=== PATIENT | female | born 1980 | race Caucasian/White ===

== ENCOUNTER 2016-08-25 10:40 | Emergency (ER) | payer OTHER ==
[~2016-08-25] VITALS: Ht 170.2 cm; Wt 104.3 kg
[~2016-08-25 10:40] MED LIST changes: -DICL50TA4; -LEVO75TA6
[2016-08-25] MEDS ORDERED: DICL50TA4 (10:52)
[2016-08-25] MEDS ORDERED: LEVO75TA6 (10:54)
[2016-08-25] MEDS ORDERED: LIDOCAINE 2% VISCOUS 15 ML UDC PO ONE (11:00)
[2016-08-25] MEDS ORDERED: ASPIRIN 81 MG CHEW (CHILDREN'S ASA) PO ONE (11:00)
[2016-08-25] MEDS ORDERED: ANTACID SUSP 30 ML UDC (MYLANTA) PO ONE (11:00)
--- NOTE | 2016-08-25 11:02 | ED Chest Pain ---
General Chief Complaint: Cardiac/General Problems Stated Complaint: ELEV BP UPPER ABD/BACK PAIN Nursing Triage Note: Patient reports was working and began to sweat, patient reports has a pain in the middle of her back and chest. patient had her BP taken and it was elevated. patient reports she has been weak and lightheaded Nursing Sepsis Screen: No Definite Risk Source: patient Exam Limitations: no limitations History of Present Illness Time seen by provider: 10:49 Initial Comments Here with report of central chest pain that radiates to her back. This is associated with nausea and sweating. Had an episode a few days ago that lasted 15 or 20 minutes and then went away. Today's episode started about 45 minutes to an hour ago and is associated with symptoms listed. Also noted to be intermittently hypertensive with blood pressure in her work area of 200/100. No family history of heart disease. Patient has history of thyroid problems and is on thyroid replacement. She is also on control. Timing/Duration: 1 hour Severity/Quality: moderate, aching, pressure Location: central Radiation: back Activities at Onset: none Prior CP/Workup: no prior chest pain ASA po LABORATORY EQUIPMENT CLEANER: No NTG SL LABORATORY EQUIPMENT CLEANER: No Associated Symptoms: abdominal pain, back pain, No diaphoresis, No edema, No fatigue, No fever/chills, nausea/vomiting, No shortness of breath, No weakness Allergies and Home Medications Allergies Coded Allergies: No Known Drug Allergies (Verified , 10/12/15) Home Medications Citalopram Hydrobromide 20 Mg Tablet, 20 MG PO DAILY, (Reported) Diclofenac Potassium 50 Mg Tablet, #90 (Reported) Levothyroxine Sodium 75 Mcg Tablet, #30 (Reported) [Sprintec 28] , 1 TAB PO DAILY Prescribed by: PERLA OSHEA on 07/14/14 0904 Review of Systems Constitutional: see HPI, No chills, diaphoresis, No fever EENTM: No Symptoms Reported Respiratory: No Symptoms Reported Cardiovascular: See HPI, Chest Pain, Palpitations Gastrointestinal: No Symptoms Reported Genitourinary: No Symptoms Reported, Denies Pain, Denies Urgency Musculoskeletal: see HPI, back pain Skin: no symptoms reported Psychiatric/Neurological: See HPI, Anxiety, Denies Headache, Denies Weakness Endocrine: No Symptoms Reported All Other Systems Reviewed Negative Unless Noted: Yes Past Lziihzm-Jmldke-Rmaykd Hx Patient Social History Alcohol Use: Denies Use Recreational Drug Use: No Smoking Status: Never a Smoker Recent Foreign Travel: No Contact w/Someone Who Travel: No Recent Infectious Disease Expo: No Recent Hopitalizations: No Surgeries HX Surgeries: Yes (R THYROIDECTOMY) Respiratory Hx Respiratory Disorders: No Cardiovascular Hx Cardiac Disorders: No Neurological Hx Neurological Disorders: No Reproductive System Hx Reproductive Disorders: No Sexually Transmitted Disease: No Genitourinary Hx Genitourinary Disorders: No Gastrointestinal Hx Gastrointestinal Disorders: No Musculoskeletal Hx Musculoskeletal Disorders: No Endocrine Hx Endocrine Disorders: Yes HEENT HX ENT Disorders: No Psychosocial Hx Psychiatric Problems: Yes Blood Transfusions Hx Blood Disorders: No Reviewed Nursing Assessment Reviewed/Agree w Nursing PMH: Yes Family Medical History Significant Family History: No Pertinent Family Hx Physical Exam Vital Signs Vital Sign - Last 12Hours 08/25/16 10:49 Temp 98.2 Pulse 87 Resp 17 B/P (MAP) 147/104 Pulse Ox 98 O2 Delivery Room Air Capillary Refill : Less Than 3 Seconds General Appearance: No Apparent Distress, WD/WN HEENT: PERRL/EOMI, Pharynx Normal Neck: Non Tender, Supple Respiratory: Lungs Clear, Normal Breath Sounds Cardiovascular: Regular Rate, Rhythm, No Murmur Gastrointestinal: Non Tender, Soft Extremity: Normal Range of Motion, Non Tender Neurologic/Psychiatric: Alert, Oriented x3 Skin: Normal Color, Warm/Dry Progress/Results/Core Measures Results/Orders Lab Results Laboratory Tests Test 08/25/16 11:06 08/25/16 13:15 Range/Units White Blood Count 8.0 4.3-11.0 10^3/uL Red Blood Count 4.20 L 4.35-5.85 10^6/uL Hemoglobin 12.8 11.5-16.0 G/DL Hematocrit 39 35-52 % Mean Corpuscular Volume 92 80-99 FL Mean Corpuscular Hemoglobin 31 25-34 PG Mean Corpuscular Hemoglobin Concent 33 32-36 G/DL Red Cell Distribution Width 13.7 10.0-14.5 % Platelet Count 259 130-400 10^3/uL Mean Platelet Volume 9.5 7.4-10.4 FL Neutrophils (%) (Auto) 69 42-75 % Lymphocytes (%) (Auto) 20 12-44 % Monocytes (%) (Auto) 8 0-12 % Eosinophils (%) (Auto) 3 0-10 % Basophils (%) (Auto) 1 0-10 % Neutrophils # (Auto) 5.5 1.8-7.8 X 10^3 Lymphocytes # (Auto) 1.6 1.0-4.0 X 10^3 Monocytes # (Auto) 0.7 0.0-1.0 X 10^3 Eosinophils # (Auto) 0.2 0.0-0.3 10^3/uL Basophils # (Auto) 0.1 0.0-0.1 10^3/uL Prothrombin Time 12.5 12.2-14.7 SEC INR Comment 1.0 0.8-1.4 Activated Partial Thromboplast Time 28 24-35 SEC D-Dimer 0.27 0.00-0.49 UG/ML Sodium Level 135 135-145 MMOL/L Potassium Level 4.0 3.6-5.0 MMOL/L Chloride Level 104 98-107 MMOL/L Carbon Dioxide Level 21 21-32 MMOL/L Anion Gap 10 5-14 MMOL/L Blood Urea Nitrogen 19 H 7-18 MG/DL Creatinine 0.68 0.60-1.30 MG/DL Estimat Glomerular Filtration Rate > 60 BUN/Creatinine Ratio 28 Glucose Level 99 70-105 MG/DL Calcium Level 9.4 8.5-10.1 MG/DL Magnesium Level 1.6 L 1.8-2.4 MG/DL Total Bilirubin 0.6 0.1-1.0 MG/DL Aspartate Amino Transf (AST/SGOT) 21 5-34 U/L Alanine Aminotransferase (ALT/SGPT) 18 0-55 U/L Alkaline Phosphatase 58 40-136 U/L Myoglobin 19.6 10.0-92.0 NG/ML Troponin I < 0.30 <0.30 NG/ML Total Protein 7.0 6.4-8.2 G/DL Albumin 4.0 3.2-4.5 G/DL Thyroid Stimulating Hormone (TSH) 2.62 0.35-4.94 UIU/ML My Orders Orders - ITA VIDES MD Cbc With Automated Diff (08/25/16 10:55) Magnesium (08/25/16 10:55) Chest 1 View, Ap/Pa Only (08/25/16 10:55) Ekg Tracing (08/25/16 10:55) Cardiac Profile 1 (08/25/16 10:55) Comprehensive Metabolic Panel (08/25/16 10:55) Myoglobin Serum (08/25/16 10:55) Protime With Inr (08/25/16 10:55) Partial Thromboplastin Time (08/25/16 10:55) O2 (08/25/16 10:55) Monitor-Rhythm Ecg Trace Only (08/25/16 10:55) Lipid Panel (08/26/16 06:00) Aspirin Chewable Tablet (Baby Aspirin Ch (08/25/16 11:00) Rx-Nitroglycerin Sl Tabs (Rx-Nitrostat S (08/25/16 11:00) Saline Lock/Iv-Start (08/25/16 10:55) Fibrin Degradation Products (08/25/16 10:55) Thyroid Stimulating Hormone (08/25/16 10:55) Lidocaine 2% Viscous 15 Ml (Xylocaine Vi (08/25/16 11:00) Antacid Suspension (Mylanta Suspension (08/25/16 11:00) Ketorolac Injection (Toradol Injection) (08/25/16 12:12) Famotidine Injection (Pepcid Injection) (08/25/16 12:12) Troponin I (08/25/16 13:18) Ekg Tracing (08/25/16 13:18) Myoglobin Serum (08/25/16 13:18) Hyoscyamine Sl Tablet (Levsin Sl Tablet) (08/25/16 13:45) Medications Given in ED Current Medications Medications Dose Ordered Sig/Tyler Route Start Time Stop Time Status Last Admin Dose Admin Al Hydrox/Mg Hydrox/Simethicone 30 ml ONCE ONCE PO 08/25/16 11:00 08/25/16 11:01 DC 08/25/16 11:16 30 ML Aspirin 324 mg ONCE ONCE PO 08/25/16 11:00 08/25/16 11:01 DC 08/25/16 11:16 324 MG Hyoscyamine Sulfate 0.125 mg ONCE ONCE SL 08/25/16 13:45 08/25/16 13:46 DC 08/25/16 13:45 0.125 MG Lidocaine HCl 15 ml ONCE ONCE PO 08/25/16 11:00 08/25/16 11:01 DC 08/25/16 11:17 15 ML Nitroglycerin 0.4 mg PRN PRN SL 08/25/16 11:00 08/25/16 11:27 0.4 MG Vital Signs/I&O Vital Sign - Last 12Hours 08/25/16 08/25/16 10:49 10:49 Temp 98.2 Pulse 87 Resp 17 B/P (MAP) 147/104 Pulse Ox 98 98 O2 Delivery Room Air Blood Pressure Mean: 118 Progress Note : Progress Note Seen and evaluated. IV, labs, EKG and chest x-ray ordered. ASA 324 mg by mouth. GI cocktail and nitroglycerin sublingual ordered. Chest pain-free after 2 nitroglycerin and the GI cocktail. She does have a little bit of back discomfort. We did give Toradol 30 mg IV for that. Monitor patient. 1230: Patient remains pain free. Repeat EKG and labs after 1 p.m. 1325: Repeat labs drawn and sent. Repeat EKG ordered. 1341: EKG still shows normal sinus rhythm. Labs pending. I did discuss the case with Dr. Katz. He will see patient in the office now for further workup and potentially stress echo. Patient is very agreeable with that plan. Discharged from ER to go to Dr. Katz 's office. Patient verbalize understanding instructions and agreement with plan. ECG Initial ECG Impression Date: August 25, 2016 Initial ECG Impression Time: 10:59 Initial ECG Rate: 73 Initial ECG Rhythm: Normal Sinus Initial ECG Intervals: Normal Initial ECG Impression: Normal Initial ECG Comparisson: Unchanged Comment Sinus rhythm with normal axis. No evidence of ST elevation. No previous available for comparison. Interpreted by me. EKG : EKG Time: 13:33 Rate: 72 Rhythm: Normal Sinus ECG Comparisson: Unchanged ECG Impression: Normal Comment Normal sinus rhythm with normal axis. No evidence of ST elevation HI. Unchanged from previous. Interpreted by me. Diagnostic Imaging Diagonstic Imaging: Xray Plain Films/CT/US/NM/MRI: chest Comments NAME: WILLIAM CROWELL MED REC#: [id number] PT STATUS: REG ER : 1980 PHYSICIAN: ITA VIDES MD ADMIT DATE: 08/25/16/ER Signed Date of Exam: 08/25/16 CHEST 1 VIEW, AP/PA ONLY EXAMINATION: Portable upright radiograph of the chest. INDICATION: Elevated blood pressure. Chest pain. FINDINGS: The lungs are clear. The heart size is normal. No effusion or pneumothorax. The mediastinum and norma appear unremarkable. IMPRESSION: Unremarkable exam. Dictated by: Dictated on workstation # [id number] Dict: 08/25/16 1121 Trans: 08/25/16 1144 Interpreted by: YARI GANDHI MD Electronically signed by: YARI GANDHI MD 08/25/16 1144 Departure Impression Impression: Primary Impression: Chest pain Qualified Codes: R07.9 - Chest pain, unspecified Disposition: HOME, SELF-CARE Condition: Stable Departure-Patient Inst. Decision time for Depature: 13:47 Referrals: SANTOS KATZ MD ,LOCAL PHYSICIAN (PCP) Primary Care Physician Patient Instructions: Chest Pain (DC) Add. Discharge Instructions: All discharge instructions reviewed with patient and/or family. Voiced understanding. Go directly to Dr. Katz's office for further evaluation. Return for worse pain , fever, vomiting, weakness, breathing problems or other concerns as needed. Copy Copies To 1: SANTOS KATZ MD, TIMOTHY D MD August 25, 2016 11:02
[2016-08-25 11:16] LABS: BASOPHILS # (AUTO) 0.1 10^3/uL (0.0-0.1); BASOPHILS % (AUTO) 1 % (0-10); EOSINOPHILS # (AUTO) 0.2 10^3/uL (0.0-0.3); EOSINOPHILS % (AUTO) 3 % (0-10); LYMPHOCYTES # (AUTO) 1.6 X 10^3 (1.0-4.0); LYMPHOCYTES % (AUTO) 20 % (12-44); MEAN CORPUSCULAR HEMOGLOBIN 31 PG (25-34); MEAN CORPUSCULAR HGB CONC 33 G/DL (32-36); MEAN CORPUSCULAR VOLUME 92 FL (80-99); MEAN PLATELET VOLUME 9.5 FL (7.4-10.4); MONOCYTES # (AUTO) 0.7 X 10^3 (0.0-1.0); MONOCYTES % (AUTO) 8 % (0-12); NEUTROPHILS # (AUTO) 5.5 X 10^3 (1.8-7.8); NEUTROPHILS % (AUTO) 69 % (42-75); PLATELET COUNT 259 10^3/uL (130-400); RED CELL DISTRIBUTION WIDTH 13.7 % (10.0-14.5)
[2016-08-25] MEDS: RX-NITROGLYCERIN 0.4 MG TAB BTL 25'S SL PRN ×2 (11:21→11:27)
--- NOTE | 2016-08-25 11:24 | Diagnostic Imaging Report ---
EXAMINATION: Portable upright radiograph of the chest. INDICATION: Elevated blood pressure. Chest pain. FINDINGS: The lungs are clear. The heart size is normal. No effusion or pneumothorax. The mediastinum and norma appear unremarkable. IMPRESSION: Unremarkable exam. Dictated by: Dictated on workstation # [id number]
[2016-08-25 11:25] LABS: PROTHROMBIN TIME PATIENT 12.5 SEC (12.2-14.7)
[2016-08-25 11:33] LABS: ALANINE AMINOTRANSFERASE 18 U/L (0-55); ANION GAP 10 MMOL/L (5-14); ASPARTATE AMINO TRANSFERASE 21 U/L (5-34); BILIRUBIN,TOTAL 0.6 MG/DL (0.1-1.0); BLOOD UREA NITROGEN 19 MG/DL (7-18); BUN/CREATININE RATIO 28; CALCIUM 9.4 MG/DL (8.5-10.1); CARBON DIOXIDE 21 MMOL/L (21-32); CHLORIDE 104 MMOL/L (98-107); CREATININE SERUM 0.68 MG/DL (0.60-1.30); GFR ESTIMATED > 60; GLUCOSE 99 MG/DL (70-105); MAGNESIUM 1.6 MG/DL (1.8-2.4); SODIUM 135 MMOL/L (135-145)
[2016-08-25 11:40] LABS: MYOGLOBIN SERUM 19.6 NG/ML (10.0-92.0)
[2016-08-25] MEDS ORDERED: FAMOTIDINE 20MG/2ML IV (PEPCID) IV STA (12:12)
[2016-08-25] MEDS ORDERED: KETOROLAC 30 MG/ML VIAL IVP STA (12:12)
[2016-08-25] MEDS ORDERED: HYOSCYAMINE 0.125 MG (LEVSIN) TAB SL ONE (13:45)
[2016-08-25 13:59] LABS: MYOGLOBIN SERUM 19.4 NG/ML (10.0-92.0); TROPONIN I < 0.30 NG/ML (<0.30)
[2016-08-25 14:01] VITALS: BP 115/70
== END 2016-08-25 14:00 | disposition home or self-care (01) ==
LOC: EDUNIT# 10:40 → ER 10:43
DX: R07.9 Chest pain, unspecified (principal); R11.0 Nausea; E07.9 Disorder of thyroid, unspecified; Z79.899 Other long term (current) drug therapy
CPT/HCPCS: 36415; 71010; 80053; 83735; 83874; 84443; 84484; 85025; 85379; 85610; 85730; 93041

== ENCOUNTER → 2016-08-25 | Outpatient (CLI) | payer OTHER ==
[~2016-08-25] MED LIST: BC PILL PO; CITA20TA12 PO; DICL50TA4; LEVO75TA6; LVT.05T PO; NRT25C; POLY17PO23 GT; PRX10T PO; SPRINTEC 28 PO; SUMA50TA2 PO; TRAM50TA2 PO; VNL75CCR PO
--- NOTE | 2016-08-25 18:18 | STRESS TEST ---
DATE OF SERVICE: 08/25/2016 EXERCISE STRESS ECHOCARDIOGRAM Baseline heart rate is 79, baseline blood pressure 143/75. Baseline EKG, sinus rhythm with no ischemic changes. SUMMARY: The patient started exercising with a baseline heart rate, blood pressure and EKG mentioned above. She was able to exercise for a total of 8 minutes on standard [place] protocol, achieving maximum heart rate of 178, which is 98% of maximum expected heart rate. With peak exercise level, EKG was showing no ischemic changes. No chest pain was reported. Blood pressure was 199/72. During recovery, heart rate and blood pressure returned to baseline. EKG returned to baseline. Echocardiographic images were acquired and reviewed in the parasternal long axis, parasternal short axis, apical four chamber and apical two chamber views. Review of the images showed normal left ventricular size with normal contractility with no ischemic changes. CONCLUSION: 1. Good exercise tolerance, a total of 8 minutes on standard [place] protocol, total of 10.1 METS achieving 98% of maximum expected heart rate. 2. Appropriate heart rate response to exercise, returned to baseline during recovery. 3. Hypertensive response to exercise, returned to baseline during recovery. 4. Normal echocardiographic images at rest and with peak stress images with no ischemic changes with normal left ventricular function. Job ID: [id number] DocumentID: [id number] Dictated Date: 08/25/2016 16:12:23 Appliance Mechanic Date: 08/25/2016 17:08:45 Dictated By: SANTOS KIRKLAND MD
== END ==
LOC: CARD 15:19
PROVIDERS: ATTEND Internal Medicine Cardiovascular Disease
DX: F41.9 Anxiety disorder, unspecified (principal); R07.9 Chest pain, unspecified; Z82.49 Family history of ischemic heart disease and other diseases of the circulatory system; Z83.3 Family history of diabetes mellitus; I10 Essential (primary) hypertension; R00.2 Palpitations
CPT/HCPCS: 93351

== ENCOUNTER → 2017-10-23 | Outpatient (CLI) | payer OTHER ==
[~2017-10-23] MED LIST changes: +DICL50TA4; +LEVO75TA6
== END | disposition home or self-care (01) ==
LOC: PREOP 05:38
PROVIDERS: ATTEND Surgery
DX: Z01.818 Encounter for other preprocedural examination (principal)

== ENCOUNTER → 2018-02-15 | Outpatient (CLI) | payer OTHER ==
[2018-02-15 10:45] LABS: BASOPHILS % (AUTO) 1 % (0-10); EOSINOPHILS # (AUTO) 0.2 10^3/uL (0.0-0.3); EOSINOPHILS % (AUTO) 4 % (0-10); HEMATOCRIT 38 % (35-52); HEMOGLOBIN 12.2 G/DL (11.5-16.0); LYMPHOCYTES # (AUTO) 1.8 X 10^3 (1.0-4.0); LYMPHOCYTES % (AUTO) 29 % (12-44); MEAN CORPUSCULAR HEMOGLOBIN 28 PG (25-34); MEAN CORPUSCULAR HGB CONC 32 G/DL (32-36); MEAN CORPUSCULAR VOLUME 87 FL (80-99); MEAN PLATELET VOLUME 9.7 FL (7.4-10.4); MONOCYTES # (AUTO) 0.6 X 10^3 (0.0-1.0); MONOCYTES % (AUTO) 9 % (0-12); NEUTROPHILS # (AUTO) 3.4 X 10^3 (1.8-7.8); NEUTROPHILS % (AUTO) 57 % (42-75); PLATELET COUNT 263 10^3/uL (130-400); RED BLOOD COUNT 4.36 10^6/uL (4.35-5.85); RED CELL DISTRIBUTION WIDTH 13.8 % (10.0-14.5)
[2018-02-15 11:07] LABS: ALANINE AMINOTRANSFERASE 61 U/L (0-55); ALBUMIN 4.4 GM/DL (3.2-4.5); ALKALINE PHOSPHATASE 72 U/L (40-136); BILIRUBIN,TOTAL 0.4 MG/DL (0.1-1.0); BUN/CREATININE RATIO 19; CALCIUM 9.4 MG/DL (8.5-10.1); CARBON DIOXIDE 24 MMOL/L (21-32); CHLORIDE 103 MMOL/L (98-107); CHOLESTEROL 171 MG/DL (< 200); CREATININE SERUM 0.74 MG/DL (0.60-1.30); GFR ESTIMATED > 60; GLUCOSE 98 MG/DL (70-105); HDL CHOLESTEROL 59 MG/DL (40-60); SODIUM 137 MMOL/L (135-145); TOTAL PROTEIN 7.4 GM/DL (6.4-8.2); TRIGLYCERIDES 61 MG/DL (<150); VLDL CHOLESTEROL 12 MG/DL (5-40)
--- NOTE | 2018-02-15 14:15 | Diagnostic Imaging Report ---
INDICATION: Routine screening. COMPARISON: No prior mammograms are available for comparison. This is a baseline study. TECHNIQUE: Screening digital mammography was performed bilaterally with a Computer Aided Detection (CAD) system. FINDINGS: Both breasts are heterogeneously dense, limiting the sensitivity of mammography. There are calcifications scattered throughout both breasts. The calcifications appear to be primarily punctate. No suspicious cluster is seen. No dominant mass is identified. The axillae are unremarkable. IMPRESSION: No mammographic features suspicious for malignancy are identified. ACR BI-RADS Category 2: Benign findings. Result letter will be mailed to the patient. Note: At least 10% of breast cancer is not imaged by mammography. Dictated by: Dictated on workstation # [id number]
== END ==
LOC: RAD 10:28
PROVIDERS: ATTEND Family Medicine
DX: Z12.31 Encounter for screening mammogram for malignant neoplasm of breast (principal); Z00.00 Encounter for general adult medical examination without abnormal findings
CPT/HCPCS: 36415; 77067; 80053; 80061; 84443; 85025

== ENCOUNTER → 2018-11-19 | Outpatient (CLI) | payer OTHER | END | disposition home or self-care (01) | LOC: PREOP 05:56 | PROVIDERS: ATTEND Surgery | DX: Z01.818 Encounter for other preprocedural examination (principal) ==

== ENCOUNTER 2018-11-26 06:59 | Day surgery (SDC) | payer OTHER ==
[~2018-11-26] VITALS: Ht 170.2 cm; Wt 104.3 kg
[~2018-11-26 06:59] MED LIST changes: +LACTATED RINGERS 1,000 ML IV ONE
[2018-11-26] MEDS ORDERED: MIDAZOLAM 2 MG/2 ML (VERSED) VIAL ONE (07:15)
[2018-11-26] MEDS ORDERED: PROPOFOL INJECTION 50 ML IV ONE (07:15)
[2018-11-26] MEDS ORDERED: LACTATED RINGERS 1,000 ML IV STA (07:20)
[2018-11-26] MEDS ORDERED: HURRICAINE EXT TUBE (BENZOCAINE) XX PRN (07:30)
[2018-11-26] MEDS ORDERED: LACTATED RINGERS 1,000 ML IV PRN (07:43)
[2018-11-26 07:45] VITALS: BP 138/100
[2018-11-26] MEDS ORDERED: RT-ALBUTEROL SULF 2.5 MG/3 ML PRE-MIX VIAL INH ONE (07:45)
--- NOTE | 2018-11-26 07:47 | Progress Note-Pre Operative ---
Pre-Operative Progress Note H&P Reviewed The H&P was reviewed, patient examined and no changes noted. Date Seen by Provider: Nov 26, 2018 Time Seen by Provider: 07:46 Date H&P Reviewed: Nov 26, 2018 Time H&P Reviewed: 07:46 Pre-Operative Diagnosis: gerd, hx polyps TREY ACUÑA DO Nov 26, 2018 07:47
--- NOTE | 2018-11-26 08:13 | Discharge Inst-Simple/Standard ---
Discharge Inst-Standard Patient Instructions/Follow Up Plan of Care/Instructions/FU: 2 weeks Patrice Activity as Tolerated: Yes Discharge Diet: Regular Diet TREY ACUÑA DO Nov 26, 2018 08:13
[2018-11-26 08:15] VITALS: BP 82/46
--- NOTE | 2018-11-26 08:15 | Progress Note-Post Operative ---
Post-Operative Progess Note Surgeon (s)/Acid Maker (s) Surgeon TREY ACUÑA DO Acid Maker: na Pre-Operative Diagnosis gerd, hx polyps Post-Operative Diagnosis normal egd/colonoscopy Procedure & Operative Findings Date of Procedure 11/26/18 Procedure Performed/Findings egd c biopsies, colonoscopy Anesthesia Type per machine tool electrician Estimated Blood Loss Estimated blood loss (mL): none Specimens/Packing Specimens Removed antrum and ge junction TREY ACUÑA DO Nov 26, 2018 08:15
[2018-11-26 08:45] VITALS: BP 125/85
--- NOTE | 2018-11-26 10:28 | Anesthesia-General Post-Op ---
MAC Patient Condition Mental Status/LOC: Same as Preop Cardiovascular: Satisfactory Nausea/Vomiting: Absent Respiratory: Satisfactory Pain: Controlled Complications: Absent Post Op Complications Complications None Follow Up Care/Instructions Patient Instructions None needed. Anesthesiology Discharge Order Discharge Order Patient is doing well, no complaints, stable vital signs, no apparent adverse anesthesia problems. No complications reported per nursing. MARICHUY PERDUE CRNA Nov 26, 2018 10:27
--- NOTE | 2018-11-26 12:36 | OPERATIVE REPORT ---
DATE OF SERVICE: 11/26/2018 PREOPERATIVE DIAGNOSES: Gastroesophageal reflux disease, history of colon polyps. POSTOPERATIVE DIAGNOSES: Normal esophagogastroduodenoscopy, colonoscopy. PROCEDURE PERFORMED: Esophagogastroduodenoscopy with biopsies, colonoscopy. ANESTHESIA: Per CHIEF CONTROLLER TOWER. SURGEON: Trey Ibrahim DO. ESTIMATED BLOOD LOSS: None. SPECIMENS: Antrum and GE junction. INDICATIONS: The patient is a 38-year-old female with GERD and history of colon polyps. She understands risks and benefits of procedure and wished to proceed with procedure. Consent was signed in the chart. DESCRIPTION OF PROCEDURE: The patient was taken to the endoscopy suite, placed in left lateral recumbent position. Timeout was performed. Scope was inserted in mouth, down the esophagus, stomach and into the duodenum. There were no polyps, masses or ulcerations within the duodenum. Scope was slowly retracted back into the stomach, which was further insufflated. No polyps, masses or ulcerations. Biopsy of the antrum was obtained. Scope was retroflexed noting no other pathology. Scope was returned to its normal position, slowly withdrawn to the distal esophagus. Biopsy of the GE junction was obtained. There were no polyps, masses or ulcerations. Scope was then slowly retracted back to completely remove noting no other pathology. Digital rectal exam was performed. There were no palpable polyps, masses or ulcerations. Scope was inserted in the rectum and advanced all the way to the cecum with minimal difficulty. Prep was adequate. Scope was then slowly retracted back. There were no polyps, masses or ulcerations in the cecum, ascending, transverse, descending and sigmoid colon. The previous tattoo was visualized. No evidence of any other pathology at the tattoo. Scope was then slowly retracted back into the rectum, where it was also retroflexed noting no other pathology. Scope was returned to its normal position, slowly withdrawn until completely removed. The patient tolerated procedure well without any complications. She was taken to recovery room in stable condition. RECOMMENDATIONS: The patient will need repeat colonoscopy in 5 years due to history of colon polyps. If any issues before that be seen at that time. The patient is to follow up in 2 weeks to discuss biopsy results. I will not change any medications at this time. I will see what pathology demonstrates and further recommendations pending these results. Job ID: [id number] DocumentID: [id number] Dictated Date: 11/26/2018 08:16:54 Consumer Loan Specialist Date: 11/26/2018 12:36:07 Dictated By: TREY IBRAHIM DO
== END 2018-11-26 09:05 | disposition home or self-care (01) ==
LOC: ENDO 06:59
PROVIDERS: ATTEND Surgery
DX: Z12.11 Encounter for screening for malignant neoplasm of colon (principal); K21.9 Gastro-esophageal reflux disease without esophagitis; I10 Essential (primary) hypertension; E03.9 Hypothyroidism, unspecified; E11.9 Type 2 diabetes mellitus without complications; F41.9 Anxiety disorder, unspecified; R07.9 Chest pain, unspecified; Z90.49 Acquired absence of other specified parts of digestive tract; Z83.3 Family history of diabetes mellitus; Z82.49 Family history of ischemic heart disease and other diseases of the circulatory system; Z86.010 Personal history of colon polyps; Z88.2 Allergy status to sulfonamides; Z79.899 Other long term (current) drug therapy; Z80.0 Family history of malignant neoplasm of digestive organs
CPT/HCPCS: 88305

== ENCOUNTER → 2018-12-28 | Outpatient (CLI) | payer OTHER ==
[~2018-12-28] MED LIST changes: -LACTATED RINGERS 1,000 ML IV ONE
[2018-12-28 08:58] LABS: BASOPHILS % (AUTO) 1 % (0-10); EOSINOPHILS # (AUTO) 0.3 10^3/uL (0.0-0.3); EOSINOPHILS % (AUTO) 4 % (0-10); HEMATOCRIT 37 % (35-52); HEMOGLOBIN 12.1 G/DL (11.5-16.0); LYMPHOCYTES # (AUTO) 1.6 X 10^3 (1.0-4.0); LYMPHOCYTES % (AUTO) 26 % (12-44); MEAN CORPUSCULAR HEMOGLOBIN 30 PG (25-34); MEAN CORPUSCULAR HGB CONC 33 G/DL (32-36); MEAN CORPUSCULAR VOLUME 90 FL (80-99); MEAN PLATELET VOLUME 9.4 FL (7.4-10.4); MONOCYTES # (AUTO) 0.6 X 10^3 (0.0-1.0); MONOCYTES % (AUTO) 10 % (0-12); NEUTROPHILS # (AUTO) 3.7 X 10^3 (1.8-7.8); NEUTROPHILS % (AUTO) 60 % (42-75); PLATELET COUNT 251 10^3/uL (130-400); RED CELL DISTRIBUTION WIDTH 13.6 % (10.0-14.5); WHITE BLOOD COUNT 6.2 10^3/uL (4.3-11.0)
[2018-12-28 09:14] LABS: ALANINE AMINOTRANSFERASE 23 U/L (0-55); ALBUMIN 3.9 GM/DL (3.2-4.5); ALKALINE PHOSPHATASE 56 U/L (40-136); BILIRUBIN,TOTAL 0.4 MG/DL (0.1-1.0); BUN/CREATININE RATIO 17; CALCIUM 8.5 MG/DL (8.5-10.1); CARBON DIOXIDE 24 MMOL/L (21-32); CHLORIDE 106 MMOL/L (98-107); CHOLESTEROL 164 MG/DL (< 200); CREATININE SERUM 0.69 MG/DL (0.60-1.30); GFR ESTIMATED > 60; GLUCOSE 85 MG/DL (70-105); HDL CHOLESTEROL 59 MG/DL (40-60); POTASSIUM 3.8 MMOL/L (3.6-5.0); SODIUM 139 MMOL/L (135-145); TOTAL PROTEIN 6.5 GM/DL (6.4-8.2); TRIGLYCERIDES 91 MG/DL (<150); VLDL CHOLESTEROL 18 MG/DL (5-40)
== END ==
LOC: LAB 08:24
PROVIDERS: ATTEND Family Medicine
DX: Z00.00 Encounter for general adult medical examination without abnormal findings (principal); Z13.220 Encounter for screening for lipoid disorders
CPT/HCPCS: 36415; 80053; 80061; 84443; 85025

== ENCOUNTER → 2019-03-20 | Outpatient (CLI) | payer OTHER ==
--- NOTE | 2019-03-20 10:22 | Diagnostic Imaging Report ---
INDICATION: Routine screening. Comparison is made with prior mammogram from 02/15/2018. 2-D and 3-D bilateral screening mammography was performed with CAD. Both breasts remain heterogeneously dense, limiting the sensitivity of mammography. Numerous punctate benign-appearing calcifications are again noted throughout both breasts. These appear similar to prior exam. Overall parenchymal pattern is stable. No mass or malignant-appearing microcalcifications are seen. Axillae are unremarkable. IMPRESSION: BI-RADS Category 2 No mammographic features suspicious for malignancy are identified. ACR BI-RADS Category 2: Benign findings. Result letter will be mailed to the patient. Note: At least 10% of breast cancer is not imaged by mammography. Dictated by: Dictated on workstation # [id number]
== END ==
LOC: RAD 09:04
PROVIDERS: ATTEND Family Medicine
DX: Z12.31 Encounter for screening mammogram for malignant neoplasm of breast (principal)
CPT/HCPCS: 77067

== ENCOUNTER → 2020-03-20 | Outpatient (CLI) | payer OTHER ==
[~2020-03-20] MED LIST changes: -TRAM50TA2 PO; +TRM50T PO
--- NOTE | 2020-03-20 14:12 | Diagnostic Imaging Report ---
INDICATION: Routine screening. Comparison is made to prior mammogram 03/20/2019 and 02/15/2018. 2-D and 3-D bilateral screening mammography was performed with CAD. Both breasts are heterogeneously dense, limiting the sensitivity of mammography. There are benign calcifications scattered throughout both breasts. There is slightly asymmetric density in the inferior left breast at mid to posterior depth. Additional views are recommended. No definite correlate on the CC view is seen. As may represent superimposed fibroglandular tissue. No malignant appearing microcalcifications are identified. The axillae are unremarkable. IMPRESSION: BI-RADS 0 Asymmetric density left inferior breast. Additional views are recommended for further evaluation. ACR BI-RADS Category 0: Incomplete. (Needs additional imaging evaluation). Result letter will be mailed to the patient. Note: At least 10% of breast cancer is not imaged by mammography. Dictated by: Dictated on workstation # [id number]
== END ==
LOC: RAD 10:49
PROVIDERS: ATTEND Family Medicine
DX: Z12.31 Encounter for screening mammogram for malignant neoplasm of breast (principal)
CPT/HCPCS: 77063; 77067

== ENCOUNTER → 2020-03-23 | Outpatient (CLI) | payer OTHER ==
--- NOTE | 2020-03-23 13:24 | Diagnostic Imaging Report ---
INDICATION: Left breast density. Patient presents for additional views. COMPARISON: Correlation is made with the recent screening study from 03/20/2020. TECHNIQUE: Unilateral left 2D and 3D diagnostic mammography was performed. This included spot compression ML as well as conventional 90 degree lateral views. FINDINGS: There is mild residual density in the inferior left breast. This appears to be laterally located on the tomographic images. This most likely represents fibroglandular tissue. No mass is identified. No malignant appearing microcalcifications are seen. IMPRESSION: Probable fibroglandular tissue in the inferior and lateral left breast at mid to posterior depth. Even so, directed sonographic interrogation of this area is recommended and will be performed today. ACR BI-RADS Category 0: Incomplete. (Needs additional imaging evaluation). Result letter will be mailed to the patient. Note: At least 10% of breast cancer is not imaged by mammography. Dictated by: Dictated on workstation # [id number]
--- NOTE | 2020-03-24 13:58 | Diagnostic Imaging Report ---
INDICATION: Left breast density. Correlation is made with diagnostic mammogram earlier the same day and screening mammogram from 03/20/2020. Sonographic interrogation of the lower outer left breast was performed. There is some ductal dilatation in the lower-outer left breast. No discrete mass is identified. No sonographic abnormality is detected. IMPRESSION: BI-RADS Category 2 Ductal dilatation. No concerning sonographic findings are identified. No mass is detected. Patient may return to routine annual screening mammography. Dictated by: Dictated on workstation # [id number]
== END ==
LOC: RAD 12:45
PROVIDERS: ATTEND Family Medicine
DX: R92.2 Inconclusive mammogram (principal)
CPT/HCPCS: 76642; 77065; G0279

== ENCOUNTER → 2021-03-01 | Outpatient (CLI) | payer OTHER ==
--- NOTE | 2021-03-01 18:26 | Diagnostic Imaging Report ---
Digital mammogram bilateral screening This study was compared to the prior exams of 02/15/2018, 03/20/2019 and 03/20/2020. At this time, there are no current complaints. The fibroglandular tissue in both breasts is dense. This does limit the sensitivity of this exam. On the craniocaudad view of the right breast in the medial aspect of the breast approximately 4.6 cm from the nipple, there is a 6 mm oval asymmetry. There is no corresponding abnormality seen on the MLO view and this finding may merely be secondary to superimposition of the fibroglandular tissue. Even so, it does seem to persist somewhat on the tomographic images ( slice 24/65 slab 1). I would recommend that compression view of this area be obtained in the craniocaudad projection as well as a true lateral view. Ultrasound should also be performed. The overall appearance of breast has not changed significantly otherwise. The asymmetric density deep in the inferior half of the left breast seen previously on the MLO view is again evident and does not appear to have changed significantly. The ultrasound examination of this area on 03/23/2020 failed to show any discrete solid or cystic mass in this region. IMPRESSION: Additional mammographic views and ultrasound of the right breast would be recommended for further study. ACR BI-RADS Category 0: Incomplete. (Needs additional imaging evaluation). Result letter will be mailed to the patient. Note: At least 10% of breast cancer is not imaged by mammography. Dictated by: Dictated on workstation # [id number]
== END ==
LOC: RAD 10:51
PROVIDERS: ATTEND Family Medicine
DX: Z12.31 Encounter for screening mammogram for malignant neoplasm of breast (principal)
CPT/HCPCS: 77063; 77067

== ENCOUNTER → 2021-03-02 | Outpatient (CLI) | payer OTHER ==
--- NOTE | 2021-03-02 15:21 | Diagnostic Imaging Report ---
EXAMINATION: Ultrasound right breast limited. INDICATION: Abnormal mammogram. FINDINGS: The screening mammogram performed on 03/01/2021 noted a small asymmetry in the medial aspect of the right breast. This was only seen on the craniocaudad projection. The diagnostic mammogram performed earlier today failed to show any sign of malignancy. On this study, there is no discrete solid or cystic mass identified in the inferomedial quadrant of the right breast. I suspect that the finding on the screening mammogram was secondary to superimposition of the fibroglandular tissue. IMPRESSION: 1. There is no evidence for malignancy. 2. The patient should have her annual bilateral screening mammogram in February 2022. ACR BI-RADS Category 1: Negative. Result letter will be mailed to the patient. Note: At least 10% of breast cancer is not imaged by mammography. Dictated by: Dictated on workstation # [id number]
--- NOTE | 2021-03-03 11:31 | Diagnostic Imaging Report ---
EXAMINATION: Unilateral diagnostic right mammogram with CAD. INDICATION: Abnormal screening mammogram. FINDINGS: The screening mammogram performed on 03/01/2021 noted a 6 mm oval asymmetry in the medial aspect of the right breast. This was only seen on the craniocaudad view. Compression views and rolled views of this area show that the area in question is less conspicuous. I do suspect it is related to fibroglandular tissue alone. Even so, I would recommend that ultrasound be performed for further study. IMPRESSION: There is no evidence for malignancy. Ultrasound would be recommended for further evaluation, however. ACR BI-RADS Category 0: Incomplete. (Needs additional imaging evaluation). Result letter will be mailed to the patient. Note: At least 10% of breast cancer is not imaged by mammography. Dictated by: Dictated on workstation # [id number]
== END ==
LOC: RAD 13:50
DX: R92.8 Other abnormal and inconclusive findings on diagnostic imaging of breast (principal)
CPT/HCPCS: 76642; 77065; G0279